=== PATIENT | male | born 1945 | race Caucasian/White ===

== ENCOUNTER 2017-09-14 08:13 | Emergency (ER) | payer OTHER ==
[~2017-09-14] VITALS: Ht 170.2 cm; Wt 72.6 kg
[2017-09-14] MEDS ORDERED: VERAPAMIL HCL40 MG (08:23)
[2017-09-14] MEDS ORDERED: TAMS0.4C (08:23)
== END 2017-09-14 11:07 | disposition home or self-care (01) ==
LOC: ER 08:13
DX: R33.8 Other retention of urine (principal)

== ENCOUNTER 2018-11-13 14:09 | Emergency (ER) | payer OTHER ==
[~2018-11-13] VITALS: Ht 170.2 cm; Wt 72.6 kg
[~2018-11-13 14:09] MED LIST: TAMS0.4C; VERAPAMIL HCL40 MG
[2018-11-13] MEDS ORDERED: COZAAR100 MG PO (14:45)
== END 2018-11-13 17:52 | disposition home or self-care (01) ==
LOC: ER 14:09
DX: S01.82XA Laceration with foreign body of other part of head, initial encounter (principal); W26.8XXA Contact with other sharp object(s), not elsewhere classified, initial encounter; Y93.89 Activity, other specified; Y92.018 Other place in single-family (private) house as the place of occurrence of the external cause; Y99.8 Other external cause status

== ENCOUNTER 2020-03-19 12:57 | Emergency (ER) | payer OTHER ==
[~2020-03-19] VITALS: Ht 167.6 cm; Wt 77.1 kg
[~2020-03-19 12:57] MED LIST changes: +COZAAR100 MG PO
== END 2020-03-19 16:48 | disposition home or self-care (01) ==
LOC: ER 12:57
DX: M94.0 Chondrocostal junction syndrome [Tietze] (principal)

== ENCOUNTER 2020-07-12 12:40 | Emergency (ER) | payer OTHER ==
[~2020-07-12] VITALS: Ht 170.2 cm; Wt 70.3 kg
[2020-07-12] MEDS ORDERED: MEMANTINE HCL10 MG (13:04)
== END 2020-07-12 18:18 | disposition home or self-care (01) ==
LOC: ER 12:40
DX: K57.30 Diverticulosis of large intestine without perforation or abscess without bleeding (principal); R10.31 Right lower quadrant pain; Z03.818 Encounter for observation for suspected exposure to other biological agents ruled out